=== PATIENT | female | born 1990 | race Caucasian/White ===

== ENCOUNTER 2023-10-19 01:40 | Emergency (ER) | payer OTHER ==
[~2023-10-19] VITALS: Ht 160 cm; Wt 59.0 kg
[2023-10-19 02:40] VITALS: BP 114/70; TEMP 98.8; O2SAT 98
== END 2023-10-19 03:30 | disposition left against medical advice (07) ==
LOC: ER 01:44
DX: R05.9 Cough, unspecified (principal); Z20.822 Contact with and (suspected) exposure to COVID-19